=== PATIENT | male | born 1955 | race Caucasian/White ===

== ENCOUNTER 2016-07-18 15:50 | Inpatient (IN) | payer MEDICAID, OTHER ==
[2016-07-18] VITALS (7 sets, daily range): BP systolic 99–127; BP diastolic 60–85; PULSE 62–92; RESP 15–18; TEMP 97.9–98.7; O2SAT 94–98
[~2016-07-18] VITALS: Ht 172.7 cm; Wt 65.0 kg
[~2016-07-18 15:50] MED LIST: LOPE2 PO
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
[2016-07-18] MEDS ORDERED: ALBUAER3 INH (17:18)
[2016-07-18] MEDS ORDERED: SPIRCAP INH (17:18)
[2016-07-18] MEDS ORDERED: MELA0.02 PO (17:18)
[2016-07-18] MEDS ORDERED: THIA100T18 PO (17:18)
[2016-07-18] MEDS ORDERED: ASPI1TAB91 PO (17:18)
[2016-07-18] MEDS ORDERED: ADVA250A INH (17:18)
[2016-07-18] MEDS ORDERED: OMEP20TA PO (17:18)
[2016-07-18] MEDS ORDERED: TAB-TAB PO (17:18)
[2016-07-18] MEDS ORDERED: LISI20TA PO (17:18)
[2016-07-18 17:46] LABS: AUTOMATED NEUTROPHIL # 5.1 TH/MM3 (1.8-7.7); BASOPHIL % 0.5 % (0.0-2.0); EOSINOPHIL # 0.2 TH/MM3 (0-0.4); EOSINOPHIL % 1.9 % (0.0-4.0); LYMPH % 22.1 % (9.0-44.0); LYMPHOCYTE # 1.7 TH/MM3 (1.0-4.8); MEAN CELL VOLUME 80.2 FL (80.0-100.0); MEAN CORPUSCULAR HGB CONC 31.2 % (32.0-36.0); MONO % 9.9 % (0.0-8.0); NEUT % 65.6 % (16.0-70.0); PLATELET COUNT 321 TH/MM3 (150-450); RED BLOOD COUNT 2.56 MIL/MM3 (4.50-5.90); RED CELL DISTRIBUTION WIDTH 17.9 % (11.6-17.2); WHITE BLOOD COUNT 7.8 TH/MM3 (4.0-11.0)
[2016-07-18 17:48] LABS: APTT (PATIENT) 89.8 SEC (24.3-30.1); PROTHROMBIN TIME - PATIENT 73.2 SEC (9.8-11.6)
[2016-07-18 17:54] LABS: HEMO FLAGS DIFF FINAL
[2016-07-18 17:56] LABS: HEMATOCRIT 20.5 % (39.0-51.0)
[2016-07-18 18:00] LABS: ALT (GPT) 35 U/L (12-78); ANION GAP 6 MEQ/L (5-15); AST (GOT) 30 U/L (15-37); BICARBONATE 22.5 MEQ/L (21.0-32.0); BLOOD UREA NITROGEN 32 MG/DL (7-18); CHLORIDE 113 MEQ/L (98-107); GLOMERULAR FILTRATION RATE 59 ML/MIN (>89); POTASSIUM 5.1 MEQ/L (3.5-5.1); SODIUM (NA) 141 MEQ/L (136-145)
[2016-07-18 18:02] LABS: ALKALINE PHOSPHATASE 59 U/L (45-117); TOTAL BILIRUBIN ADULT 0.1 MG/DL (0.2-1.0)
[2016-07-18] MEDS ORDERED: SODIUM CHLOR 0.9% 250 ML INJ 250 ML IV ONE (18:15)
[2016-07-18 18:26] LABS: INTERNATIONAL NORMALIZED RATIO 6.1 RATIO
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
[2016-07-18] MEDS ORDERED: ALBUTEROL SULFATE 90 MCG/ACT HFA 8 GM INHALER INH PRN (18:45)
[2016-07-18] MEDS ORDERED: ONDANSETRON HCL 4 MG/2 ML VIAL IV PRN (18:45)
[2016-07-18] MEDS ORDERED: SODIUM CHLORIDE 0.9% FLUSH 5 ML FLUSH IV PRN (18:45)
[2016-07-18] MEDS ORDERED: SODIUM CHLOR 0.9% 1000 ML INJ 1,000 ML IV SCH (18:59)
[2016-07-18 20:24] LABS: REVIEW FLAG FINAL
[2016-07-18 20:27] LABS: HEMATOCRIT 20.2 % (39.0-51.0)
[2016-07-18] MEDS: SODIUM CHLORIDE 0.9% FLUSH 5 ML FLUSH IV SCH (20:52)
[2016-07-18] MEDS: BUDESONIDE-FORMOTEROL 160/4.5 MCG INHALER INH SCH (21:02)
[2016-07-19] VITALS (7 sets, daily range): BP systolic 101–167; BP diastolic 62–74; PULSE 60–75; RESP 17–20; TEMP 97–100; O2SAT 92–99
[2016-07-19 03:29] LABS: AUTOMATED NEUTROPHIL # 5.7 TH/MM3 (1.8-7.7); BASOPHIL # 0.1 TH/MM3 (0-0.2); BASOPHIL % 0.9 % (0.0-2.0); EOSINOPHIL # 0.2 TH/MM3 (0-0.4); EOSINOPHIL % 1.8 % (0.0-4.0); HEMATOCRIT 27.8 % (39.0-51.0); HEMO FLAGS DIFF FINAL; LYMPH % 21.9 % (9.0-44.0); LYMPHOCYTE # 1.8 TH/MM3 (1.0-4.8); MEAN CELL VOLUME 80.1 FL (80.0-100.0); MEAN CORPUSCULAR HEMOGLOBIN 26.4 PG (27.0-34.0); MONO % 7.7 % (0.0-8.0); NEUT % 67.7 % (16.0-70.0); PLATELET COUNT 319 TH/MM3 (150-450); RED BLOOD COUNT 3.46 MIL/MM3 (4.50-5.90); RED CELL DISTRIBUTION WIDTH 17.3 % (11.6-17.2); WHITE BLOOD COUNT 8.4 TH/MM3 (4.0-11.0)
[2016-07-19 03:49] LABS: BICARBONATE 20.8 MEQ/L (21.0-32.0); POTASSIUM 4.9 MEQ/L (3.5-5.1)
--- NOTE | 2016-07-19 08:52 | HHI.FPPN ---
Subjective Remarks FM Attending Note: Patient seen and examined. S: Chart and all resident physician notes reviewed. In summary this is a 61 year old male who was admitted with an admission diagnosis of Anemia, Gi Bleed. This patient has reportedly been living in either an assisted living facility or long-term facility in the [facility] due to cognitive impairment. He has a history of atrial fibrillation and is apparently been on warfarin therapy. He was sent to the hospital due to the finding of anemia. Due to his cognitive impairment his history is somewhat questionable. He denies any hematemesis or rectal bleeding. Does not report any melena. He does note some increased bleeding from some small cuts. He has a history of hepatitis C, COPD, cerebrovascular disease with questionable vascular dementia and past alcohol use. This morning he denies any pain. No shortness of breath is noted. He has been transfused with 2 units of blood to his initial hemoglobin which was in the 6 level. Objective Vitals Vital Signs Date Time Temp Pulse Resp B/P Pulse Ox O2 Delivery O2 Flow Rate FiO2 07/19/16 08:03 99.1 63 18 112/62 97 07/19/16 04:00 98.0 75 17 106/64 92 07/19/16 01:15 98.6 69 18 101/62 99 07/19/16 00:00 97.7 72 17 110/68 98 07/18/16 22:35 98.7 77 18 127/85 98 Room Air 07/18/16 21:35 77 16 122/82 96 Room Air 07/18/16 20:46 97.9 92 18 114/77 94 Room Air 07/18/16 19:59 77 18 121/75 94 Room Air 07/18/16 18:15 62 16 99/62 96 Room Air 07/18/16 17:15 62 16 101/60 96 Room Air 07/18/16 17:00 65 16 98 Room Air 07/18/16 16:50 98.4 69 15 118/63 97 I/O 07/18/16 07/18/16 07/18/16 07/19/16 07/19/16 07/19/16 07:00 15:00 23:00 07:00 15:00 23:00 Intake Total 560 ml 720 ml Output Total 200 ml 500 ml Balance 360 ml 220 ml Intake Oral 240 ml 0 ml Packed Cells 320 ml 720 ml Output Urine Total 200 ml 500 ml # Voids 1 # Bowel Movements 1 Result Diagram: 07/19/16 0309 07/19/16 0309 Other Results Item Value Date Time Hemoglobin 6.4 GM/DL *L 07/18/161714 Hematocrit 20.5 % *L 07/18/161714 Mean Corpuscular Volume 80.2 FL 07/18/161714 Platelet Count 321 TH/MM3 07/18/161714 Total Bilirubin 0.1 MG/DL L 07/18/161714 Aspartate Amino Transf (AST/SGOT) 30 U/L 07/18/161714 Alanine Aminotransferase (ALT/SGPT) 35 U/L 07/18/161714 Alkaline Phosphatase 59 U/L 07/18/161714 Prothrombin Time 73.2 SEC H 07/18/161714 Prothromb Time International Ratio 6.1 RATIO *H 07/18/161714 Activated Partial Thromboplast Time 89.8 SEC H 07/18/161714 Objective Remarks O. CONSTITUTIONAL/GEN: normally nourished, in NAD. EYES: conjunctiva somewhat palel, PERRLA, EOMI. LUNGS: clear A-P, respiratory effort is normal. CARDIOVASCULAR: RR without murmur or gallop. No significant edema. GI/ABD: soft without masses, without organomegaly. NEURO: No focal deficits. SKIN: color normal (some pallor), no rashes noted. HEME/LYMPH: no bruising, petechia or significant adenopathy MUSC: back is normal in appearance. Extremities are normal in appearance. PSYCH/MENTAL STATUS: Alert and oriented generally to place. His short-term memory is impaired. He does not recall the name of his current residence. Notes he was living at "[facility]". Originally from [place] but lived much of his life by report in [facility] in a "double-wide close to [employer] [place]." A/P Assessment and Plan This is a 61-year-old male with past medical history of alcohol abuse , A. fib with RVR, hepatitis C, COPD, sciatica, stroke, and vascular dementia. Being admitted for GI bleed and anemia. Problem List: (1) GI bleed Status: Acute Plan: Patient found to have a hemoglobin of 6.4 in the ED. In the process of receiving 2 units of packed red blood cells. Hemoccult positive. No reported increase in bowel movements, hematochezia, hematemesis, or melena. * Admitted to inpatient * Consult GI: Recommendations appreciated * Protonix 40 mg IV * Zofran 4 mg IV every 6 hours when necessary nausea * Trending H&H * CBC, BMP ordered for the a.m. 07/19/16 Hemoglobin now improved following transfusion of 2 units of blood. As noted, he had an significant warfarin related coagulopathy which contributed to his anemia. GI evaluation is pending. Case management will investigate information regarding his current living situation which is not documented currently in his record. (2) A-fib Status: Chronic Plan: History of A. fib currently rate controlled with pulse 60s. Patient reports taking Coumadin, but no current records showing that he is on Coumadin, however patient's INR is elevated at 6.1 likely source of bleeding. * Will hold Coumadin at this time * Will hold patient's aspirin * Will monitor patient's pulse was is currently not on any rate control medications that are reported (3) Cognitive impairment Status: Chronic Plan: This patient appears to have a history of cognitive impairment. Reviewing records available from previous hospitalization so that he had a CT scan done of his brain 2013 that showed chronic changes with cortical and central atrophy, periventricular and deep white matter tracts small vessel ischemic the mild demyelinization as well as lacunar type infarcts in the bilateral external capsule, right basal ganglia and billy. He did have a TSH done in 2012 that was normal at 0.801. As noted above he had a significant past history of alcohol use. This information would suggest vascular and/or chronic alcohol related dementia. (4) COPD (chronic obstructive pulmonary disease) Status: Chronic Plan: Patient has a long-standing history of COPD * Continue home medication of albuterol * Continue home medication of Symbicort * Continue home medication of Spiriva (5) Nutrition, metabolism, and development symptoms Status: Acute Plan: Bed rest Vitals every 4 Monitor I's and O's SCDs for DVT prophylaxis, due to bleeding no anticoagulation at this time Monitor I's and was accordingly CODE STATUS: Full code Disposition: To be determined upon improvement of anemia Problem Qualifiers (1) GI bleed: Qualified Code: K92.2 - Gastrointestinal hemorrhage, unspecified gastrointestinal hemorrhage type (2) A-fib: Qualified Code: I48.0 - Paroxysmal atrial fibrillation (3) COPD (chronic obstructive pulmonary disease): Qualified Code: J44.9 - Chronic obstructive pulmonary disease, unspecified COPD type Jonathan Thomas MD Jul 19, 2016 08:52
[2016-07-19] MEDS: TIOTROPIUM BROMIDE 18 MCG INH INH SCH (09:00)
[2016-07-19] MEDS: BUDESONIDE-FORMOTEROL 160/4.5 MCG INHALER INH SCH ×2 (09:53→20:22)
[2016-07-19] MEDS: HYDROCHLOROTHIAZIDE 12.5 MG CAP PO SCH (09:53)
[2016-07-19] MEDS: LISINOPRIL 20 MG TAB PO SCH (09:53)
[2016-07-19] MEDS: PANTOPRAZOLE SODIUM 40 MG VIAL IV SCH (09:53)
[2016-07-19] MEDS: SODIUM CHLORIDE 0.9% FLUSH 5 ML FLUSH IV SCH ×2 (09:54→20:23)
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
[2016-07-19] MEDS: FOLIC ACID 1 MG TAB PO SCH (12:41)
[2016-07-19] MEDS: THIAMINE HCL 100 MG TAB PO SCH (12:41)
[2016-07-19] MEDS: MULTIVITAMINS/MINERALS THERAPEUTIC TAB PO SCH (12:41)
[2016-07-19 14:19] LABS: HEMATOCRIT 29.1 % (39.0-51.0); REVIEW FLAG FINAL
[2016-07-19 19:33] LABS: HEMATOCRIT 30.9 % (39.0-51.0); REVIEW FLAG FINAL
[2016-07-20] VITALS: BP 98/54; PULSE 52; RESP 18; TEMP 98.9; O2SAT 97
[2016-07-20 07:21] LABS: AUTOMATED NEUTROPHIL # 6.8 TH/MM3 (1.8-7.7); BASOPHIL # 0.1 TH/MM3 (0-0.2); BASOPHIL % 0.9 % (0.0-2.0); EOSINOPHIL # 0.1 TH/MM3 (0-0.4); EOSINOPHIL % 1.3 % (0.0-4.0); HEMATOCRIT 31.9 % (39.0-51.0); HEMO FLAGS DIFF FINAL; LYMPH % 17.2 % (9.0-44.0); LYMPHOCYTE # 1.6 TH/MM3 (1.0-4.8); MEAN CELL VOLUME 80.3 FL (80.0-100.0); MEAN CORPUSCULAR HEMOGLOBIN 26.4 PG (27.0-34.0); MEAN CORPUSCULAR HGB CONC 32.9 % (32.0-36.0); MONO % 8.6 % (0.0-8.0); PLATELET COUNT 321 TH/MM3 (150-450); RED BLOOD COUNT 3.98 MIL/MM3 (4.50-5.90); RED CELL DISTRIBUTION WIDTH 17.4 % (11.6-17.2); WHITE BLOOD COUNT 9.4 TH/MM3 (4.0-11.0)
[2016-07-20 07:30] LABS: BICARBONATE 22.7 MEQ/L (21.0-32.0); POTASSIUM 4.2 MEQ/L (3.5-5.1)
[2016-07-20 07:40] LABS: INTERNATIONAL NORMALIZED RATIO 2.3 RATIO; PROTHROMBIN TIME - PATIENT 26.6 SEC (9.8-11.6)
[2016-07-20 08:00] VITALS: BP 105/62; PULSE 52; RESP 18; TEMP 97.1; O2SAT 97
--- NOTE | 2016-07-20 08:17 | HHI.FPPN ---
Subjective Remarks Patient seen and examined this morning. Afebrile vital signs stable. Repeat INR trending down now 2.3. Plan for EGD and colonoscopy for Thursday07/21/16. Patient agrees with this plan of care. He denies any issues at this time. Says that he wants to be able to get out of the bed and use the bathroom. Have agreed to physical therapy seeing him in allowing him the bed with assistance at this time. Endorses: None Denies: Fever, chills, nausea, vomiting, shortness of breath, chest pain, headache, abdominal pain, calf pain (Eris Martínez MD R2) Objective Vitals Vital Signs Date Time Temp Pulse Resp B/P Pulse Ox O2 Delivery O2 Flow Rate FiO2 07/20/16 00:00 98.9 52 18 98/54 97 07/19/16 20:00 100.0 60 18 113/64 97 07/19/16 16:00 97.0 61 20 167/74 97 07/19/16 12:00 99.5 70 18 117/63 99 I/O 07/19/16 07/19/16 07/19/16 07/20/16 07/20/16 07/20/16 07:00 15:00 23:00 07:00 15:00 23:00 Intake Total 720 ml 480 ml 240 ml 240 ml Output Total 500 ml 600 ml 100 ml Balance 220 ml -120 ml 240 ml 140 ml Intake Oral 0 ml 480 ml 240 ml 240 ml IV Total 0 ml Packed Cells 720 ml Output Urine Total 500 ml 600 ml 100 ml # Voids 1 2 # Bowel Movements 1 2 0 0 (Eris Martínez MD R2) Result Diagram: 07/20/1631 07/20/1631 Objective Remarks O. CONSTITUTIONAL/GEN: normally nourished, in NAD. EYES: conjunctiva somewhat palel, PERRLA, EOMI. LUNGS: clear A-P, respiratory effort is normal. CARDIOVASCULAR: RR without murmur or gallop. No significant edema. GI/ABD: soft without masses, without organomegaly. NEURO: No focal deficits. SKIN: color normal (some pallor), no rashes noted. HEME/LYMPH: no bruising, petechia or significant adenopathy MUSC: back is normal in appearance. Extremities are normal in appearance. PSYCH/MENTAL STATUS: Alert and oriented generally to place. His short-term memory is impaired. Medications and IVs Current Medications Medications (Trade) Dose Ordered Sig/Estela Route Start Time Stop Time Status Last Admin (NS Flush) 2 ml UNSCH PRN IV 07/18/16 18:45 (NS Flush) 2 ml BID IV 07/18/16 21:00 07/19/16 20:23 (Zofran Inj) 4 mg Q6H PRN IV 07/18/16 18:45 (Protonix Inj) 40 mg DAILY IV 07/19/16 09:00 07/19/16 09:53 (Proair Hfa Inh) 2 puff Q6H PRN INH 07/18/16 18:45 (Spiriva Inh) 18 mcg DAILY INH 07/19/16 09:00 (Symbicort 160-4.5 Inh) 2 puff BID INH 07/18/16 21:00 07/19/16 20:22 (Prinivil) 20 mg DAILY PO 07/19/16 09:00 07/19/16 09:53 (Microzide) 12.5 mg DAILY PO 07/19/16 09:00 07/19/16 09:53 (Folate) 1 mg DAILY PO 07/19/16 11:15 07/24/16 11:14 07/19/16 12:41 (Vitamin B1) 100 mg DAILY PO 07/19/16 11:15 07/19/16 12:41 (Theragran M Tab) 1 tab DAILY PO 07/19/16 11:15 07/24/16 11:14 07/19/16 12:41 (Eris Martínez MD R2) A/P Assessment and Plan This is a 61-year-old male with past medical history of alcohol abuse , A. fib with RVR, hepatitis C, COPD, sciatica, stroke, and vascular dementia. Being admitted for GI bleed and anemia. Discharge Planning Pending results of EGD and colonoscopy (Eris Martínez MD R2) Attending Attestation Case reviewed and discussed with the resident team. Agree with plan of care as discussed with me and documented in the resident note. (Jonathan Thomas MD) Problem List: (1) GI bleed Status: Acute Plan: Patient found to have a hemoglobin of 6.4 in the ED. Status post 2 units of packed red blood cells. Hemoccult positive. H&H trended up. Current hemoglobin/hematocrit is 10.5/31.9 respectively. Per GI plan for EGD and colonoscopy Thursday07/21/16 * Consult GI: Recommendations appreciated * Protonix 40 mg IV * Zofran 4 mg IV every 6 hours when necessary nausea * CBC, BMP ordered for the a.m. (2) A-fib Status: Chronic Plan: History of A. fib currently rate controlled with pulse 60s. Patient reports taking Coumadin, but no current records showing that he is on Coumadin. Current INR is 2.3 down from previous * Will hold Coumadin at this time * Will hold patient's aspirin * Will monitor patient's pulse was is currently not on any rate control medications that are reported (3) Cognitive impairment Status: Chronic Plan: This patient appears to have a history of cognitive impairment. Reviewing records available from previous hospitalization so that he had a CT scan done of his brain 2013 that showed chronic changes with cortical and central atrophy, periventricular and deep white matter tracts small vessel ischemic the mild demyelinization as well as lacunar type infarcts in the bilateral external capsule, right basal ganglia and billy. He did have a TSH done in 2012 that was normal at 0.801. As noted above he had a significant past history of alcohol use. This information would suggest vascular and/or chronic alcohol related dementia. * Rally pack (4) COPD (chronic obstructive pulmonary disease) Status: Chronic Plan: Patient has a long-standing history of COPD * Continue home medication of albuterol * Continue home medication of Symbicort * Continue home medication of Spiriva (5) Nutrition, metabolism, and development symptoms Status: Acute Plan: Out of bed with assistance PT consulted Monitor electrolytes replace accordingly Vitals every 4 Monitor I's and O's SCDs for DVT prophylaxis, due to bleeding no pharmaceutical anticoagulation at this time CODE STATUS: Full code Disposition: To be determined upon results of EGD and colonoscopy (Eris Martínez MD R2) Problem Qualifiers (1) GI bleed: Qualified Code: K92.2 - Gastrointestinal hemorrhage, unspecified gastrointestinal hemorrhage type (2) A-fib: Qualified Code: I48.0 - Paroxysmal atrial fibrillation (3) COPD (chronic obstructive pulmonary disease): Qualified Code: J44.9 - Chronic obstructive pulmonary disease, unspecified COPD type Eris Martínez MD R2 Jul 20, 2016 08:17 Jonathan Thomas MD Jul 21, 2016 10:54
[2016-07-20] MEDS: LISINOPRIL 20 MG TAB PO SCH (08:41)
[2016-07-20] MEDS: THIAMINE HCL 100 MG TAB PO SCH (08:41)
[2016-07-20] MEDS: MULTIVITAMINS/MINERALS THERAPEUTIC TAB PO SCH (08:41)
[2016-07-20] MEDS: HYDROCHLOROTHIAZIDE 12.5 MG CAP PO SCH (08:41)
[2016-07-20] MEDS: PANTOPRAZOLE SODIUM 40 MG VIAL IV SCH (08:42)
[2016-07-20] MEDS: TIOTROPIUM BROMIDE 18 MCG INH INH SCH (08:42)
[2016-07-20] MEDS: SODIUM CHLORIDE 0.9% FLUSH 5 ML FLUSH IV SCH ×2 (08:42→21:40)
[2016-07-20] MEDS: FOLIC ACID 1 MG TAB PO SCH (08:42)
[2016-07-20] MEDS: BUDESONIDE-FORMOTEROL 160/4.5 MCG INHALER INH SCH ×2 (08:51→21:41)
[2016-07-20 12:00] VITALS: BP_SYST 82; BP_SYST 85; BP_DIAS 42; BP_DIAS 54; PULSE 86; RESP 18; TEMP 96.7; O2SAT 94
[2016-07-20] MEDS ORDERED: SODIUM CHLORID 0.9% 500 ML INJ 500 ML IV ONE (12:30)
[2016-07-20] MEDS ORDERED: PEG (High)/E-LYTE SOLN 4000 ML BTL PO ONE (15:45)
[2016-07-20 16:00] VITALS: BP 96/59; PULSE 77; RESP 18; TEMP 97.6; O2SAT 96
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
[2016-07-20 20:00] VITALS: BP 130/69; PULSE 82; RESP 20; TEMP 101.1; O2SAT 97
[2016-07-20] MEDS ORDERED: ACETAMINOPHEN 325 MG TAB PO PRN (20:30)
[2016-07-20] MEDS: SODIUM CHLORID 0.9% 500 ML IV SCH (23:37)
[2016-07-20] MEDS: LACTATED RINGER'S 1000 ML IV SCH (23:37)
[2016-07-21] VITALS: BP 105/60; PULSE 70; RESP 18; TEMP 100.4; O2SAT 94
[2016-07-21 05:34] LABS: HEMATOCRIT 31.6 % (39.0-51.0); MEAN CELL VOLUME 80.2 FL (80.0-100.0); MEAN CORPUSCULAR HEMOGLOBIN 25.9 PG (27.0-34.0); MEAN CORPUSCULAR HGB CONC 32.3 % (32.0-36.0); PLATELET COUNT 315 TH/MM3 (150-450); RED BLOOD COUNT 3.94 MIL/MM3 (4.50-5.90); RED CELL DISTRIBUTION WIDTH 18.4 % (11.6-17.2); REVIEW FLAG FINAL; WHITE BLOOD COUNT 15.5 TH/MM3 (4.0-11.0)
[2016-07-21 05:39] LABS: INTERNATIONAL NORMALIZED RATIO 1.6 RATIO; PROTHROMBIN TIME - PATIENT 18.6 SEC (9.8-11.6)
[2016-07-21 05:58] LABS: ALT (GPT) 30 U/L (12-78); ANION GAP 8 MEQ/L (5-15); AST (GOT) 23 U/L (15-37); BICARBONATE 24.1 MEQ/L (21.0-32.0); BLOOD UREA NITROGEN 20 MG/DL (7-18); CHLORIDE 107 MEQ/L (98-107); GLOMERULAR FILTRATION RATE 71 ML/MIN (>89); POTASSIUM 3.9 MEQ/L (3.5-5.1); SODIUM (NA) 139 MEQ/L (136-145)
[2016-07-21 06:01] LABS: ALKALINE PHOSPHATASE 61 U/L (45-117); TOTAL BILIRUBIN ADULT 0.5 MG/DL (0.2-1.0)
[2016-07-21 08:00] VITALS: BP 96/60; PULSE 56; RESP 18; TEMP 97.5; O2SAT 97
[2016-07-21] MEDS: PANTOPRAZOLE SODIUM 40 MG VIAL IV SCH (09:00)
[2016-07-21] MEDS: HYDROCHLOROTHIAZIDE 12.5 MG CAP PO SCH (09:00)
[2016-07-21] MEDS: LISINOPRIL 20 MG TAB PO SCH (09:00)
[2016-07-21] MEDS: FOLIC ACID 1 MG TAB PO SCH (09:01)
[2016-07-21] MEDS: MULTIVITAMINS/MINERALS THERAPEUTIC TAB PO SCH (09:01)
[2016-07-21] MEDS: THIAMINE HCL 100 MG TAB PO SCH (09:01)
[2016-07-21] MEDS: SODIUM CHLORIDE 0.9% FLUSH 5 ML FLUSH IV SCH ×2 (09:02→20:40)
[2016-07-21] MEDS: TIOTROPIUM BROMIDE 18 MCG INH INH SCH (09:03)
[2016-07-21] MEDS: BUDESONIDE-FORMOTEROL 160/4.5 MCG INHALER INH SCH ×2 (09:03→20:40)
--- NOTE | 2016-07-21 11:14 | HHI.FPPN ---
Subjective Remarks Patient seen and examined this morning. No acute events overnight. He is NPO for EGD and colonoscopy this morning. Denies any bowel movement. No complaints/ concerns. Denies chest pain, SOB, abdominal pain, leg pain. No nausea/vomiting, lightheadedness/dizziness. (Alex Marcus MD R1) Objective Vitals Vital Signs Date Time Temp Pulse Resp B/P Pulse Ox O2 Delivery O2 Flow Rate FiO2 07/21/16 08:00 97.5 56 18 96/60 97 07/21/16 00:00 100.4 70 18 105/60 94 07/20/16 20:00 101.1 82 20 130/69 97 07/20/16 16:00 97.6 77 18 96/59 96 07/20/16 12:00 96.7 86 18 85/54 94 82/42 I/O 07/20/16 07/20/16 07/20/16 07/21/16 07/21/16 07/21/16 07:00 15:00 23:00 07:00 15:00 23:00 Intake Total 240 ml 1460 ml 480 ml 0 ml Output Total 100 ml 300 ml Balance 140 ml 1460 ml 180 ml 0 ml Intake Oral 240 ml 960 ml 480 ml 0 ml IV Total 0 ml 500 ml Output Urine Total 100 ml 300 ml # Voids 3 4 # Bowel Movements 0 2 1 (Alex Marcus MD R1) Result Diagram: 07/21/16 0515 07/21/16 0515 Objective Remarks O. CONSTITUTIONAL/GEN: normally nourished, in NAD. EYES: conjunctiva somewhat palel, PERRLA, EOMI. LUNGS: clear A-P, respiratory effort is normal. CARDIOVASCULAR: RR without murmur or gallop. No significant edema. GI/ABD: soft without masses, without organomegaly. NEURO: No focal deficits. SKIN: color normal (some pallor), no rashes noted. HEME/LYMPH: no bruising, petechia or significant adenopathy MUSC: back is normal in appearance. Extremities are normal in appearance. PSYCH/MENTAL STATUS: Alert and oriented generally to place. His short-term memory is impaired. (Alex Marcus MD R1) A/P Assessment and Plan This is a 61-year-old male with past medical history of alcohol abuse , A. fib with RVR, hepatitis C, COPD, sciatica, stroke, and vascular dementia. Being admitted for GI bleed and anemia. Discharge Planning Pending results of EGD and colonoscopy (Alex Marcus MD R1) Attending Attestation Patient seen and examined. Case reviewed and discussed with the resident team. Agree with plan of care as discussed with me and documented in the resident note. (Jonathan Thomas MD) Problem List: (1) GI bleed Status: Acute Plan: Patient found to have a hemoglobin of 6.4 in the ED. Status post 2 units of packed red blood cells. Hemoccult positive. H&H trended up. Current hemoglobin/hematocrit is 10.5/31.9 respectively. Per GI plan for EGD and colonoscopy Thursday07/21/16 * Consult GI: Recommendations appreciated * Protonix 40 mg IV * Zofran 4 mg IV every 6 hours when necessary nausea * CBC, BMP ordered for the a.m. (2) A-fib Status: Chronic Plan: History of A. fib currently rate controlled with pulse 60s. Patient reports taking Coumadin, but no current records showing that he is on Coumadin. INR 1.6 today * Will hold patient's aspirin * Will monitor patient's pulse was is currently not on any rate control medications that are reported * Restart Coumadin after procedures today. (3) Cognitive impairment Status: Chronic Plan: This patient appears to have a history of cognitive impairment. Reviewing records available from previous hospitalization so that he had a CT scan done of his brain 2013 that showed chronic changes with cortical and central atrophy, periventricular and deep white matter tracts small vessel ischemic the mild demyelinization as well as lacunar type infarcts in the bilateral external capsule, right basal ganglia and billy. He did have a TSH done in 2012 that was normal at 0.801. As noted above he had a significant past history of alcohol use. This information would suggest vascular and/or chronic alcohol related dementia. * Rally pack (4) COPD (chronic obstructive pulmonary disease) Status: Chronic Plan: Patient has a long-standing history of COPD * Continue home medication of albuterol * Continue home medication of Symbicort * Continue home medication of Spiriva (5) Nutrition, metabolism, and development symptoms Status: Acute Plan: Out of bed with assistance PT consulted Monitor electrolytes replace accordingly Vitals every 4 Monitor I's and O's SCDs for DVT prophylaxis, due to bleeding no pharmaceutical anticoagulation at this time CODE STATUS: Full code Disposition: To be determined upon results of EGD and colonoscopy (Alex Marcus MD R1) Problem Qualifiers (1) GI bleed: Qualified Code: K92.2 - Gastrointestinal hemorrhage, unspecified gastrointestinal hemorrhage type (2) A-fib: Qualified Code: I48.0 - Paroxysmal atrial fibrillation (3) COPD (chronic obstructive pulmonary disease): Qualified Code: J44.9 - Chronic obstructive pulmonary disease, unspecified COPD type Alex Marcus MD R1 Jul 21, 2016 11:14 Jonathan Thomas MD Jul 21, 2016 14:49
[2016-07-21 11:40] VITALS: BP 97/62; PULSE 55; RESP 16; TEMP 97.8; O2SAT 95
[2016-07-21 12:00] VITALS: BP 101/63; PULSE 58; RESP 18; TEMP 97.6; O2SAT 97
[2016-07-21] MEDS ORDERED: PROPOFOL 200 MG/20 ML AMP IV ONE (12:12)
[2016-07-21] MEDS ORDERED: PEG (High)/E-LYTE SOLN 4000 ML BTL PO ONE (13:00)
[2016-07-21] MEDS: WARFARIN SOD 2.5 MG TAB PO SCH (17:31)
[2016-07-21] MEDS: SODIUM CHLORID 0.9% 500 ML IV SCH (17:32)
[2016-07-21 20:00] VITALS: BP 120/70; PULSE 70; RESP 21; TEMP 96; O2SAT 98
[2016-07-21] MEDS: LACTATED RINGER'S 1000 ML IV SCH (20:40)
[2016-07-21 23:37] VITALS: BP 105/59; PULSE 64; RESP 20; TEMP 98.4; O2SAT 94
[2016-07-22 04:52] LABS: BASOPHIL % 0.4 % (0.0-2.0); EOSINOPHIL % 0.3 % (0.0-4.0); HEMATOCRIT 28.6 % (39.0-51.0); HEMO FLAGS DIFF FINAL; LYMPH % 17.5 % (9.0-44.0); LYMPHOCYTE # 1.7 TH/MM3 (1.0-4.8); MEAN CORPUSCULAR HEMOGLOBIN 26.3 PG (27.0-34.0); MEAN CORPUSCULAR HGB CONC 32.8 % (32.0-36.0); MONO % 8.7 % (0.0-8.0); NEUT % 73.1 % (16.0-70.0); PLATELET COUNT 301 TH/MM3 (150-450); RED BLOOD COUNT 3.58 MIL/MM3 (4.50-5.90); RED CELL DISTRIBUTION WIDTH 18.2 % (11.6-17.2); WHITE BLOOD COUNT 9.5 TH/MM3 (4.0-11.0)
[2016-07-22 05:02] LABS: BICARBONATE 22.6 MEQ/L (21.0-32.0); POTASSIUM 3.6 MEQ/L (3.5-5.1)
[2016-07-22 08:00] VITALS: BP 108/59; PULSE 53; RESP 17; TEMP 98.4; O2SAT 95
--- NOTE | 2016-07-22 08:52 | HHI.FPPN ---
Subjective Remarks Patient seen and examined this morning. Afebrile vital signs stable. Patient understands the plan is to receive a colonoscopy sometime this morning. His only concern is wanting to get breakfast this is a can after the procedure. Endorses: None Denies: Fever, chills, nausea, vomiting, shortness of breath, chest pain, headache, abdominal pain, calf pain (Eirs Martínez MD R2) Objective Vitals Vital Signs Date Time Temp Pulse Resp B/P Pulse Ox O2 Delivery O2 Flow Rate FiO2 07/22/16 08:00 98.4 53 17 108/59 95 07/21/16 23:37 98.4 64 20 105/59 94 07/21/16 20:00 96.0 70 21 120/70 98 07/21/16 12:42 52 16 95/58 96 07/21/16 12:32 48 16 85/52 98 07/21/16 12:27 52 16 91/59 96 07/21/16 12:22 98.6 53 16 89/58 95 07/21/16 12:00 97.6 58 18 101/63 97 07/21/16 11:40 97.8 55 16 97/62 95 I/O 07/21/16 07/21/16 07/21/16 07/22/16 07/22/16 07/22/16 07:00 15:00 23:00 07:00 15:00 23:00 Intake Total 0 ml 200 ml 240 ml 120 ml 0 ml Balance 0 ml 200 ml 240 ml 120 ml 0 ml Intake Oral 0 ml 0 ml 240 ml 120 ml 0 ml IV Total 200 ml # Voids 4 5 5 3 # Bowel Movements 0 6 2 (Eris Martínez MD R2) Result Diagram: 07/22/16 0356 07/22/16 0356 Objective Remarks O. CONSTITUTIONAL/GEN: normally nourished, in NAD. EYES: conjunctiva somewhat palel, PERRLA, EOMI. LUNGS: clear A-P, respiratory effort is normal. CARDIOVASCULAR: RR without murmur or gallop. No significant edema. GI/ABD: soft without masses, without organomegaly. NEURO: No focal deficits. SKIN: color normal (some pallor), no rashes noted. HEME/LYMPH: no bruising, petechia or significant adenopathy MUSC: back is normal in appearance. Extremities are normal in appearance. PSYCH/MENTAL STATUS: Alert and oriented generally to place. His short-term memory is impaired. Procedures 07/21/16 endoscopy: Results pending 07/22/16 colonoscopy: Pending Medications and IVs Current Medications Medications (Trade) Dose Ordered Sig/Estela Route Start Time Stop Time Status Last Admin (NS Flush) 2 ml UNSCH PRN IV 07/18/16 18:45 (NS Flush) 2 ml BID IV 07/18/16 21:00 07/21/16 20:40 (Zofran Inj) 4 mg Q6H PRN IV 07/18/16 18:45 (Protonix Inj) 40 mg DAILY IV 07/19/16 09:00 07/21/16 09:00 (Proair Hfa Inh) 2 puff Q6H PRN INH 07/18/16 18:45 (Spiriva Inh) 18 mcg DAILY INH 07/19/16 09:00 07/21/16 09:03 (Symbicort 160-4.5 Inh) 2 puff BID INH 07/18/16 21:00 07/21/16 20:40 (Prinivil) 20 mg DAILY PO 07/19/16 09:00 07/19/16 09:53 (Microzide) 12.5 mg DAILY PO 07/19/16 09:00 07/20/16 08:41 (Folate) 1 mg DAILY PO 07/19/16 11:15 07/24/16 11:14 07/21/16 09:01 (Vitamin B1) 100 mg DAILY PO 07/19/16 11:15 07/21/16 09:01 (Theragran M Tab) 1 tab DAILY PO 07/19/16 11:15 07/24/16 11:14 07/21/16 09:01 Acetaminophen 650 mg 650 mg Q4H PRN PO 07/20/16 20:30 07/20/16 21:41 (Lr 1000 ml Inj) 1,000 ml @ 30 mls/hr Q24H IV 07/21/16 02:00 (Coumadin) 2.5 mg DAILY@16 PO 07/21/16 16:00 07/21/16 17:31 (Eris Martínez MD R2) A/P Assessment and Plan This is a 61-year-old male with past medical history of alcohol abuse , A. fib with RVR, hepatitis C, COPD, sciatica, stroke, and vascular dementia. Admitted for GI bleed and anemia. Discharge Planning Pending results of EGD and colonoscopy (Eris Martínez MD R2) Attending Attestation Case reviewed and discussed with the resident team. Agree with plan of care as discussed with me and documented in the resident note. (Jonathan Thomas MD) Problem List: (1) GI bleed Status: Acute Plan: Patient found to have a hemoglobin of 6.4 in the ED. Status post 2 units of packed red blood cells. Hemoccult positive. H&H trended up. Current hemoglobin/hematocrit is 10.5/31.9 respectively. Status post endoscopy on . Colonoscopy pending for today 07/22/69 * Consult GI: Recommendations appreciated * Protonix 40 mg IV * Zofran 4 mg IV every 6 hours when necessary nausea * CBC, BMP ordered for the a.m. (2) A-fib Status: Chronic Plan: History of A. fib currently rate controlled with pulse 60s. Patient reports taking Coumadin, but no current records showing that he is on Coumadin. INR 1.6 today * Will hold patient's aspirin * Will monitor patient's pulse which is currently not on any rate control medications, though rate is appropriate at this time * Restart Coumadin after procedures today. (3) Cognitive impairment Status: Chronic Plan: This patient appears to have a history of cognitive impairment. Reviewing records available from previous hospitalization so that he had a CT scan done of his brain 2013 that showed chronic changes with cortical and central atrophy, periventricular and deep white matter tracts small vessel ischemic the mild demyelinization as well as lacunar type infarcts in the bilateral external capsule, right basal ganglia and billy. He did have a TSH done in 2012 that was normal at 0.801. As noted above he had a significant past history of alcohol use. This information would suggest vascular and/or chronic alcohol related dementia. * Rally pack (4) COPD (chronic obstructive pulmonary disease) Status: Chronic Plan: Patient has a long-standing history of COPD * Continue home medication of albuterol * Continue home medication of Symbicort (5) Nutrition, metabolism, and development symptoms Status: Acute Plan: Out of bed with assistance PT consulted Monitor electrolytes replace accordingly Vitals every 4 Monitor I's and O's SCDs for DVT prophylaxis, due to bleeding no pharmaceutical anticoagulation at this time CODE STATUS: Full code Disposition: To be determined upon results of EGD and colonoscopy (Eris Martínez MD R2) Problem Qualifiers (1) GI bleed: Qualified Code: K92.2 - Gastrointestinal hemorrhage, unspecified gastrointestinal hemorrhage type (2) A-fib: Qualified Code: I48.0 - Paroxysmal atrial fibrillation (3) COPD (chronic obstructive pulmonary disease): Qualified Code: J44.9 - Chronic obstructive pulmonary disease, unspecified COPD type Eris Martínez MD R2 Jul 22, 2016 08:51 Jonathan Thomas MD Jul 22, 2016 12:08
[2016-07-22] MEDS: MULTIVITAMINS/MINERALS THERAPEUTIC TAB PO SCH (08:56)
[2016-07-22] MEDS: LISINOPRIL 20 MG TAB PO SCH (08:56)
[2016-07-22] MEDS: THIAMINE HCL 100 MG TAB PO SCH (08:56)
[2016-07-22] MEDS: FOLIC ACID 1 MG TAB PO SCH (08:56)
[2016-07-22] MEDS: PANTOPRAZOLE SODIUM 40 MG VIAL IV SCH (08:56)
[2016-07-22] MEDS: HYDROCHLOROTHIAZIDE 12.5 MG CAP PO SCH (08:57)
[2016-07-22] MEDS: BUDESONIDE-FORMOTEROL 160/4.5 MCG INHALER INH SCH ×2 (09:00→21:29)
[2016-07-22] MEDS: SODIUM CHLORIDE 0.9% FLUSH 5 ML FLUSH IV SCH ×2 (09:00→21:28)
[2016-07-22 09:21] LABS: INTERNATIONAL NORMALIZED RATIO 1.7 RATIO; PROTHROMBIN TIME - PATIENT 18.8 SEC (9.8-11.6)
[2016-07-22] MEDS ORDERED: PROPOFOL 200 MG/20 ML AMP IV ONE (10:00)
[2016-07-22] MEDS ORDERED: COUM2.5T PO (11:14)
--- NOTE | 2016-07-22 11:16 | HHI.DCPOC ---
Discharge Care Plan Diagnosis: (1) GI bleed (2) Warfarin anticoagulation (3) A-fib (4) Supratherapeutic INR (5) Cognitive impairment (6) Anemia Goals to Promote Your Health * To prevent worsening of your condition and complications * To maintain your health at the optimal level Take 5 mg of Warfarin on discharge Follow up with PT/INR on 07/28/16 and 08/01/16 Directions to Meet Your Goals Take your medications as prescribed Follow your dietary instruction Follow activity as directed Keep your appointments as scheduled Take your immunizations and boosters as scheduled If your symptoms worsen call your PCP, if no PCP go to Urgent Care Center or Emergency Room Smoking is Dangerous to Your Health. Avoid second hand smoke Call the 24-hour hour crisis hotline for domestic abuse at Eris Martínez MD R2 Jul 22, 2016 11:15
[2016-07-22 12:00] VITALS: BP 111/70; PULSE 55; RESP 19; TEMP 99.2; O2SAT 95
[2016-07-22 16:00] VITALS: BP 115/70; PULSE 60; RESP 19; TEMP 98.4; O2SAT 96
[2016-07-22] MEDS: WARFARIN SOD 2.5 MG TAB PO SCH (16:20)
[2016-07-22 20:00] VITALS: BP 94/55; PULSE 55; RESP 20; TEMP 97.3; O2SAT 94
[2016-07-23] VITALS: BP 98/53; PULSE 57; RESP 21; TEMP 96.5; O2SAT 97
[2016-07-23] MEDS: LACTATED RINGER'S 1000 ML IV SCH (02:00)
[2016-07-23 04:00] VITALS: BP 103/70; PULSE 63; RESP 21; TEMP 96.2; O2SAT 96
[2016-07-23 06:40] LABS: AUTOMATED NEUTROPHIL # 4.7 TH/MM3 (1.8-7.7); BASOPHIL % 0.4 % (0.0-2.0); EOSINOPHIL # 0.1 TH/MM3 (0-0.4); EOSINOPHIL % 1.3 % (0.0-4.0); HEMO FLAGS DIFF FINAL; LYMPHOCYTE # 1.4 TH/MM3 (1.0-4.8); MEAN CELL VOLUME 80.3 FL (80.0-100.0); MEAN CORPUSCULAR HEMOGLOBIN 26.7 PG (27.0-34.0); MEAN CORPUSCULAR HGB CONC 33.2 % (32.0-36.0); MONO % 8.2 % (0.0-8.0); NEUT % 69.1 % (16.0-70.0); PLATELET COUNT 287 TH/MM3 (150-450); RED BLOOD COUNT 3.49 MIL/MM3 (4.50-5.90); RED CELL DISTRIBUTION WIDTH 18.1 % (11.6-17.2); WHITE BLOOD COUNT 6.8 TH/MM3 (4.0-11.0)
[2016-07-23 06:50] LABS: BICARBONATE 23.6 MEQ/L (21.0-32.0); POTASSIUM 3.9 MEQ/L (3.5-5.1)
[2016-07-23 07:56] LABS: HCV RNA PCR IU/ML 114000 IU/mL (()); HCV RNA PCR LOGIU/ML 5.06 (())
[2016-07-23 08:00] VITALS: BP 101/62; PULSE 53; RESP 16; TEMP 96.9; O2SAT 96
[2016-07-23] MEDS: THIAMINE HCL 100 MG TAB PO SCH (09:13)
[2016-07-23] MEDS: FOLIC ACID 1 MG TAB PO SCH (09:13)
[2016-07-23] MEDS: LISINOPRIL 20 MG TAB PO SCH (09:14)
[2016-07-23] MEDS: PANTOPRAZOLE SODIUM 40 MG VIAL IV SCH (09:14)
[2016-07-23] MEDS: SODIUM CHLORIDE 0.9% FLUSH 5 ML FLUSH IV SCH (09:14)
[2016-07-23] MEDS: HYDROCHLOROTHIAZIDE 12.5 MG CAP PO SCH (09:14)
[2016-07-23] MEDS: MULTIVITAMINS/MINERALS THERAPEUTIC TAB PO SCH (09:14)
[2016-07-23] MEDS: BUDESONIDE-FORMOTEROL 160/4.5 MCG INHALER INH SCH (09:15)
--- NOTE | 2016-07-23 10:53 | HHI.FPPN ---
Subjective Remarks Patient examined this morning. Afebrile vital signs stable. Patient reports that he is ready the hospital today. He plans to go back to the assisted living , then try to get his own apartment and live on food stamps. (Eris Martínez MD R2) Objective Vitals Vital Signs Date Time Temp Pulse Resp B/P Pulse Ox O2 Delivery O2 Flow Rate FiO2 07/23/16 08:00 96.9 53 16 101/62 96 07/23/16 04:00 96.2 63 21 103/70 96 07/23/16 00:00 96.5 57 21 98/53 97 07/22/16 20:00 97.3 55 20 94/55 94 07/22/16 16:00 98.4 60 19 115/70 96 07/22/16 12:00 99.2 55 19 111/70 95 I/O 07/22/16 07/22/16 07/22/16 07/23/16 07/23/16 07/23/16 07:00 15:00 23:00 07:00 15:00 23:00 Intake Total 120 ml 200 ml 240 ml 240 ml Output Total 200 ml 300 ml Balance 120 ml 200 ml 40 ml -60 ml Intake Oral 120 ml 0 ml 240 ml 240 ml IV Total 200 ml 0 ml 0 ml Output Urine Total 200 ml 300 ml # Voids 3 2 2 # Bowel Movements 2 0 0 (Eris Martínez MD R2) Result Diagram: 07/23/16 0607/23/16 06 Objective Remarks O. CONSTITUTIONAL/GEN: normally nourished, in NAD. EYES: conjunctiva somewhat palel, PERRLA, EOMI. LUNGS: clear A-P, respiratory effort is normal. CARDIOVASCULAR: RR without murmur or gallop. No significant edema. GI/ABD: soft without masses, without organomegaly. NEURO: No focal deficits. SKIN: color normal (some pallor), no rashes noted. HEME/LYMPH: no bruising, petechia or significant adenopathy MUSC: back is normal in appearance. Extremities are normal in appearance. PSYCH/MENTAL STATUS: Alert and oriented generally to place. His short-term memory is impaired. Procedures 07/21/16 endoscopy: Results pending 07/22/16 colonoscopy: 2 polyps removed, no hemorrhaging, internal hemorrhoids, diverticulosis (Eris Martínez MD R2) A/P Assessment and Plan This is a 61-year-old male with past medical history of alcohol abuse , A. fib with RVR, hepatitis C, COPD, sciatica, stroke, and vascular dementia. Admitted for GI bleed and anemia. Discharge Planning Pending clearance by GI (Eris Martínez MD R2) Attending Attestation Patient seen and examined. Case reviewed and discussed with the resident team. Agree with plan of care as discussed with me and documented in the resident note. (Jonathan Thomas MD) Problem List: (1) GI bleed Status: Acute Plan: Patient found to have a hemoglobin of 6.4 in the ED. Status post 2 units of packed red blood cells. Hemoccult positive. H&H trended up. Current hemoglobin/hematocrit is 9.3/28.0 respectively. * Consult GI: Recommendations appreciated * Protonix 40 mg IV * Zofran 4 mg IV every 6 hours when necessary nausea * CBC, BMP ordered for the a.m. (2) A-fib Status: Chronic Plan: History of A. fib currently rate controlled with pulse 60s. Patient reports taking Coumadin, but no current records showing that he is on Coumadin. INR 1.6 today * Will hold patient's aspirin * Will monitor patient's pulse which is currently not on any rate control medications, though rate is appropriate at this time * Restart Coumadin at 5 mg upon discharge * PT/INR scheduled for Thursday07/28/16 and 08/01/69 (3) Cognitive impairment Status: Chronic Plan: This patient appears to have a history of cognitive impairment. Reviewing records available from previous hospitalization so that he had a CT scan done of his brain 2013 that showed chronic changes with cortical and central atrophy, periventricular and deep white matter tracts small vessel ischemic the mild demyelinization as well as lacunar type infarcts in the bilateral external capsule, right basal ganglia and billy. He did have a TSH done in 2012 that was normal at 0.801. As noted above he had a significant past history of alcohol use. This information would suggest vascular and/or chronic alcohol related dementia. * Rally pack (4) COPD (chronic obstructive pulmonary disease) Status: Chronic Plan: Patient has a long-standing history of COPD * Continue home medication of albuterol * Continue home medication of Symbicort (5) Nutrition, metabolism, and development symptoms Status: Acute Plan: Out of bed with assistance PT consulted Monitor electrolytes replace accordingly Vitals every 4 Monitor I's and O's SCDs for DVT prophylaxis, due to bleeding no pharmaceutical anticoagulation at this time CODE STATUS: Full code Disposition: Pending clearance by GI (Eris Martínez MD R2) Problem Qualifiers (1) GI bleed: Qualified Code: K92.2 - Gastrointestinal hemorrhage, unspecified gastrointestinal hemorrhage type (2) A-fib: Qualified Code: I48.0 - Paroxysmal atrial fibrillation (3) COPD (chronic obstructive pulmonary disease): Qualified Code: J44.9 - Chronic obstructive pulmonary disease, unspecified COPD type Eris Martínez MD R2 Jul 23, 2016 10:52 Jonathan Thomas MD Jul 24, 2016 08:18
[2016-07-23 12:00] VITALS: BP 102/65; PULSE 55; RESP 18; TEMP 97.3; O2SAT 96
--- NOTE | 2016-07-23 15:06 | HHI.DS ---
Discharge Summary Admission Date Jul 18, 2016 at 18:18 Discharge Date: Jul 23, 2016 Admitting Diagnosis anemia, GI bleed (1) GI bleed Diagnosis: Principal Plan: Patient found to have a hemoglobin of 6.4 in the ED. Status post 2 units of packed red blood cells. Hemoccult positive. H&H trended up. Current hemoglobin/hematocrit is 9.3/28.0 respectively. * Consult GI: Recommendations appreciated * Protonix 40 mg IV * Zofran 4 mg IV every 6 hours when necessary nausea * CBC, BMP ordered for the a.m. (2) A-fib Diagnosis: Secondary Plan: History of A. fib currently rate controlled with pulse 60s. Patient reports taking Coumadin, but no current records showing that he is on Coumadin. INR 1.6 today * Will hold patient's aspirin * Will monitor patient's pulse which is currently not on any rate control medications, though rate is appropriate at this time * Restart Coumadin at 5 mg upon discharge * PT/INR scheduled for Thursday07/28/16 and 08/01/69 (3) Cognitive impairment Diagnosis: Secondary Plan: This patient appears to have a history of cognitive impairment. Reviewing records available from previous hospitalization so that he had a CT scan done of his brain 2013 that showed chronic changes with cortical and central atrophy, periventricular and deep white matter tracts small vessel ischemic the mild demyelinization as well as lacunar type infarcts in the bilateral external capsule, right basal ganglia and billy. He did have a TSH done in 2012 that was normal at 0.801. As noted above he had a significant past history of alcohol use. This information would suggest vascular and/or chronic alcohol related dementia. * Rally pack (4) COPD (chronic obstructive pulmonary disease) Diagnosis: Secondary Plan: Patient has a long-standing history of COPD * Continue home medication of albuterol * Continue home medication of Symbicort (5) Nutrition, metabolism, and development symptoms Diagnosis: Secondary Plan: Out of bed with assistance PT consulted Monitor electrolytes replace accordingly Vitals every 4 Monitor I's and O's SCDs for DVT prophylaxis, due to bleeding no pharmaceutical anticoagulation at this time CODE STATUS: Full code Disposition: Pending clearance by GI Consultants GI Procedures 07/21/16 endoscopy: Results pending 07/22/16 colonoscopy: 2 polyps removed, no hemorrhaging, internal hemorrhoids, diverticulosis Brief History Patient has poor historian This is a 61-year-old male with past medical history of alcohol abuse , A. fib with RVR on Coumadin per patient and old notes, hepatitis C, COPD, sciatica, stroke, and vascular dementia. He is currently living at a [facility] and [facility] and he went to get his blood levels checked today. He was found to be anemic with a hemoglobin of 6.6 and hematocrit of 21.1. The patient reports that of late he has been an easy bleeder and contributes this to his Coumadin. The records sent over did not show him on Coumadin but old charts show him having started Coumadin for his A. fib. He says that he has been bleeding slightly from a cut on his left wrist that he picks at regularly. As well as a small cut on his lip that he cut while shaving. In the ED Hemoccult was performed and he was positive. He denies any hematochezia, hematemesis, melena, nausea, vomiting, or diarrhea. He is not aware of any increase in his stools. Claims that his bowel movements appear normal brown color. He says that he is feeling fine and is said that he got taken away from his [employer] at his living facility. CBC/BMP: 07/23/16 0603 07/23/16 0603 Significant Findings Laboratory Tests Test 07/21/16 07/22/16 07/22/16 07/23/16 05:15 03:56 08:30 06:03 White Blood Count 15.5 TH/MM3 (4.0-11.0) Red Blood Count 3.94 MIL/MM3 3.58 MIL/MM3 3.49 MIL/MM3 (4.50-5.90) (4.50-5.90) (4.50-5.90) Hemoglobin 10.2 GM/DL 9.4 GM/DL 9.3 GM/DL (13.0-17.0) (13.0-17.0) (13.0-17.0) Hematocrit 31.6 % 28.6 % 28.0 % (39.0-51.0) (39.0-51.0) (39.0-51.0) Mean Corpuscular Hemoglobin 25.9 PG 26.3 PG 26.7 PG (27.0-34.0) (27.0-34.0) (27.0-34.0) Red Cell Distribution Width 18.4 % 18.2 % 18.1 % (11.6-17.2) (11.6-17.2) (11.6-17.2) Prothrombin Time 18.6 SEC 18.8 SEC (9.8-11.6) (9.8-11.6) Blood Urea Nitrogen 20 MG/DL (7-18) Estimat Glomerular Filtration 71 ML/MIN (>89) 85 ML/MIN (>89) 75 ML/MIN (>89) Rate Calcium Level 8.2 MG/DL 8.0 MG/DL 8.2 MG/DL (8.5-10.1) (8.5-10.1) (8.5-10.1) Total Protein 6.3 GM/DL (6.4-8.2) Albumin 2.5 GM/DL (3.4-5.0) Neutrophils (%) (Auto) 73.1 % (16.0-70.0) Monocytes (%) (Auto) 8.7 % (0.0-8.0) 8.2 % (0.0-8.0) Chloride Level 108 MEQ/L 109 MEQ/L (98-107) (98-107) PE at Discharge O. CONSTITUTIONAL/GEN: normally nourished, in NAD. EYES: conjunctiva somewhat palel, PERRLA, EOMI. LUNGS: clear A-P, respiratory effort is normal. CARDIOVASCULAR: RR without murmur or gallop. No significant edema. GI/ABD: soft without masses, without organomegaly. NEURO: No focal deficits. SKIN: color normal (some pallor), no rashes noted. HEME/LYMPH: no bruising, petechia or significant adenopathy MUSC: back is normal in appearance. Extremities are normal in appearance. PSYCH/MENTAL STATUS: Alert and oriented generally to place. His short-term memory is impaired. Hospital Course 61 y/o male with history of COPD, Afib, dementia presents with anemia. Initial hemoglobin of 6.3 on admission. Positive Hemoccult and found to have INR of 6.1. Patient was admitted and transfused 2 units of RBC and GI was consulted. Pt was kept NPO and started on protonix for possible procedure. Patient's hemoglobin stabilized after transfusion and INR normalized and patient was restarted on warfarin. Pt underwent EGD, which showed gastritis. Colonoscopy showed diverticulitis and no active bleeding. Pt was discharged in stable condition back to SNF with follow-up with GI. Pt Condition on Discharge: Stable Discharge Disposition: Discharge to SNF Discharge Instructions DIET: Follow Instructions for: Heart Healthy Diet Activities you can perform: Regular-No Restrictions Follow up Referrals: Gastroenterology - 2 Weeks PCP Follow-up - 1 Week New Orders: PT/INR - 07/28/16 PT/INR - 07/31/16 New Medications: Warfarin (Coumadin) 2.5 Mg Tab 5 MG PO DAILY@16 #30 TAB Continued Medications: Albuterol 8.5 GM Inh (Proair Hfa 8.5 GM Inh) 90 Mcg/Act Aer 2 PUFF INH Q6H 108 mcg/actuation PRN SHORTNESS OF BREATH #1 Ref [address] (Aspirin Adult Low Strength) 81 Mg Tabdr 81 MG PO DAILY TAB Fluticasone-Salmeterol Inh (Advair Diskus Inh) 250-50 Mcg/Blist Aer 2 PUFF INH BID Rinse mouth after use. #1 Ref 0 INHALER Lisinopril-Hctz (Lisinopril-Hctz) 20-12.5 Mg Tab 1 TAB PO DAILY Blood Pressure Management #30 Ref 0 TAB Melatonin (Melatonin) 3 Mg Tab 6 MG PO HS Multiple Vitamin (Tab-A-Al) 1 Tab Tab 1 TAB PO DAILY Omeprazole (Omeprazole) 20 Mg Tab 20 MG PO DAILY #30 Ref 0 TAB Thiamine Mononitrate (Vitamin B-1) 100 Mg Tab 100 MG PO DAILY TAB Discontinued Medications: Tiotropium Inh (Spiriva Handihaler) 18 Mcg Cap 18 MCG INH DAILY 1 capsule = 18 mcg COPD #30 Ref 0 CAP Alex Marcus MD R1 Jul 23, 2016 15:06
[2016-07-24 03:52] LABS: HEPATITIS C RNA GENOTYPE 1a (())
== END 2016-07-23 16:13 | DRG 379 ==
LOC: NEPE 15:50 → NEDA 18:18 → N07B 22:51
PROVIDERS: ADMIT Family Medicine; ATTEND Family Medicine
PROC: 30233N1 Transfusion of Nonautologous Red Blood Cells into Peripheral Vein, Percutaneous Approach (ICD-10-PCS; principal; 2016-07-18)
PROC: 0DB68ZX Excision of Stomach, Via Natural or Artificial Opening Endoscopic, Diagnostic (ICD-10-PCS; 2016-07-21)
PROC: 0DBN8ZZ Excision of Sigmoid Colon, Via Natural or Artificial Opening Endoscopic (ICD-10-PCS; 2016-07-22)
DX: K92.2 Gastrointestinal hemorrhage, unspecified (principal); K74.60 Unspecified cirrhosis of liver; F01.50 Vascular dementia, unspecified severity, without behavioral disturbance, psychotic disturbance, mood disturbance, and anxiety; I10 Essential (primary) hypertension; D64.9 Anemia, unspecified; S01.501A Unspecified open wound of lip, initial encounter; R79.1 Abnormal coagulation profile; I48.0 Paroxysmal atrial fibrillation; F17.210 Nicotine dependence, cigarettes, uncomplicated; Z86.73 Personal history of transient ischemic attack (TIA), and cerebral infarction without residual deficits; J44.9 Chronic obstructive pulmonary disease, unspecified; F41.9 Anxiety disorder, unspecified; M19.90 Unspecified osteoarthritis, unspecified site; Z88.8 Allergy status to other drugs, medicaments and biological substances; X58.XXXA Exposure to other specified factors, initial encounter; Y93.9 Activity, unspecified; Y92.9 Unspecified place or not applicable; B19.20 Unspecified viral hepatitis C without hepatic coma; M54.30 Sciatica, unspecified side; S61.512A Laceration without foreign body of left wrist, initial encounter; Z80.0 Family history of malignant neoplasm of digestive organs; K20.9 Esophagitis, unspecified; K29.70 Gastritis, unspecified, without bleeding; D12.5 Benign neoplasm of sigmoid colon; K64.4 Residual hemorrhoidal skin tags; K64.8 Other hemorrhoids; K57.30 Diverticulosis of large intestine without perforation or abscess without bleeding; Z79.01 Long term (current) use of anticoagulants
CPT/HCPCS: 36430; 80048; 80053; 85014; 85018; 85025; 85027; 85610; 85730; 86850; 86900; 86901; 86920; 87040; 87522; 87902; 88305; 88312; 99284; C9113; J7030; J7040; J7050; P9016